=== PATIENT | female | born 2000 ===

== ENCOUNTER → 2021-10-22 | Outpatient (REF) | payer OTHER | LOC: M LAB REF 20:16 | PROVIDERS: ATTEND Physician Assistant | DX: R30.0 Dysuria (principal) ==

== ENCOUNTER → 2021-11-10 | Outpatient (REF) | payer OTHER | LOC: M LAB REF 20:06 | PROVIDERS: ATTEND Physician Assistant Medical | DX: J06.9 Acute upper respiratory infection, unspecified (principal); R53.83 Other fatigue ==